=== PATIENT | male | born 1955 | race Caucasian/White ===

== ENCOUNTER 2018-03-23 16:19 | Emergency (ER) | payer BC ==
[2018-03-23 16:28] VITALS: BP 144/92
--- OUTSIDE RECORDS SUMMARY | 2018-03-23 16:41 | XMS REPORT ---
:1955 External Reference #:[id number] Author Organization [facility] Address [address] [facility] [place] [address] [place] [address] Phone [phone] Care Team Providers Name Role Phone Malinda Hudson MD Primary Care Physician Unavailable Payers Type Date Identification Numbers Payment Provider Subscriber Commercial Effective: Policy Number: [id number] [employer] Kylah Khan 2013 PayID: [id number] [address] [address] [place] [address] Workers Effective: Policy Number: [place] Compensation 2014 [id number] Insurance Co Onset: 2014 PayID: [id number] [address] [place] [address] Problems Date Description Provider Status Onset: 02/03/2015 Essential hypertension Matthew May DO [facility] Active Family History Date Family Member(s) Problem(s) Comments : (age 80 Father due to complications Years) injury : (age 70 Mother due to Natural HTN, DM Years) Causes Siblings 6 3 brothers, 3 sisters, no known significant medical problems with them. 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 In [place] Cigarette Use Never Smoked Cigarettes ETOH Use Drinks Alcoholic Beverages less than once a week Rarely Smoking Patient has never smoked Recreational Drug Use Denies Drug Use Daily Caffeine Consumes on average 1 cup of hot tea per day Exercise Type/Frequency Does not exercise none currently due to back injury Exercise Type/Frequency Used to jog daily General Hx Text [place] hoopa, [place] speaker. Imigrated to [facility]. Allergies, Adverse Reactions, Alerts Date Description Reaction Status Severity Comments 04/19/2015 Cyclobenzaprine may have caused V tach active 06/05/2013 NKDA inactive Medications Medication Date Status Form Strength Qnty SIG Indications Ordering Provider Telmisartan 11/28 Active Tablets 20mg 90tab Take One Malinda /2017 s Tablet By Cotton, Mouth M.D. Every Day In The Evening Hydrochlorothiazid 09/14 Active Tablets 25mg 90tab Take One Malinda e s Tablet By Cotton, Mouth M.D. Every Day In The Morning Acetaminophen 0000 Active Tablets 500mg 2 tablets Unknown /0000 every 6 hours as needed for pain Micardis 09/13 Hx Tablets 20mg 90tab take one Malinda /2017 s tablet Cotton, - every M.D. 11/28 Micardis 09/12 Hx Tablets 40mg 90tab 1 by mouth Malinda /2017 s every day Cotton, - M.D. 09/13 Hydrochlorothiazid 02/10 Hx Tablets 12.5mg 30tab take two Malinda e s tablets by Cotton, - mouth M.D. 09/14 Metoprolol 01/16 Hx Tablets 25mg 45tab 1 by mouth Malinda Succinate ER ER 24HR s every Cotton, - other day M.D. 11/28 Cyclobenzaprine 12/24 Hx Tablets 10mg 30tab 1 tablet 785.1 Malinda HCL s at Cotton, - bedtime; M.D. 01/15 can also take this in the day time every 8 hours. Micardis 08/08 Hx Tablets 20mg 90tab Take Two Malinda s Tablets By Cotton, - Mouth M.D. 09/12 Every Micardis 04/28 Hx Tablets 40mg 30tab 1 by mouth Malinda s every day Cotton, - M.D. 08/08 Micardis 01/27 Hx Tablets 20mg 30tab 1 by mouth Malinda /2013 s every day Cotton, - M.D. 04/28 Micardis 10/18 Hx Tablets 20mg 30tab 1 PO qd 401.1 s Tristan, - M.D. 10/23 Micardis 06/16 Hx Tablets 80mg not taking on regular Cotton, - basis M.D. 10/18 Bystolic 06/16 Hx Tablets 20mg not taking 401.1 on regular Cotton, - M.D. 10/18 No Active 06/05 Hx Unknown /2013 - 06/16 Fish Oil Hx Capsules 1000mg 1 by mouth Unknown /0000 occasional - ly (dosage 11/28 500mg 1000mg not sure) Medications Administered in Office Medication Date Status Form Strength Qnty SIG Indications Ordering Provider Inj, Administered Injection Matthew S. Regadenoson, 015 May, DO 0.1 MG FACC Technetium TC Administered Injection Matthew S. 99M 015 May, DO Tetrofosmin, FACC Per Unit Dose Up To 40 Millicuries Technetium TC Administered Injection Matthew S. 99M 015 May, DO Tetrofosmin, FACC Per Unit Dose Up To 40 Millicuries Vital Signs Date Vital Result Comment 03/21/2018 Height 67 inches 5'7" Weight 231.00 lb Heart Rate 60 /min BP Systolic 130 mmHg right arm 136/93 BP Diastolic 86 mmHg right arm 136/93 Body Temperature 97.6 F O2 % BldC Oximetry 97 % BMI (Body Mass Index) 36.2 kg/m2 11/28/2016 Weight 225.50 lb Heart Rate 82 /min BP Systolic 136 mmHg BP Diastolic 82 mmHg Body Temperature 97.2 F O2 % BldC Oximetry 99 % 10/27/2016 Height 67 inches 5'7" Weight 228.00 lb with shoes Heart Rate 60 /min BP Systolic 156 mmHg Home unit HR 59 BP Diastolic 91 mmHg Home unit HR 59 BP Systolic Sitting 140 mmHg Lue lrg cuff BP Diastolic Sitting 98 mmHg Lue lrg cuff BP Systolic Standing 136 mmHg Lue lrg cuff BP Diastolic Standing 96 mmHg Lue lrg cuff Respiratory Rate 17 /min BMI (Body Mass Index) 35.7 kg/m2 Ejection Fraction 55-60% 01/13/2016-echo 09/16/2016 Height 67 inches 5'7" Weight 225.00 lb no shoes Heart Rate 62 /min BP Systolic 141 mmHg Home monnitor @ 6:18am BP Diastolic 83 mmHg Home monnitor @ 6:18am BP Systolic Sitting 140 mmHg Lue lrg cuff BP Diastolic Sitting 94 mmHg Lue lrg cuff BP Systolic Standing 124 mmHg Lue lrg cuff BP Diastolic Standing 86 mmHg Lue lrg cuff Respiratory Rate 16 /min BMI (Body Mass Index) 35.2 kg/m2 Ejection Fraction 55-60% 01/13/2016-echo 08/29/2016 Weight 227.75 lb Heart Rate 64 /min BP Systolic 136 mmHg BP Diastolic 90 mmHg Body Temperature 97.5 F O2 % BldC Oximetry 97 % 02/08/2016 Weight 230.00 lb with shoes Heart Rate 60 /min BP Systolic 132 mmHg Lue lg cuff pt request BP Diastolic 96 mmHg Lue lg cuff pt request BP Systolic Sitting 138 mmHg Ra large cuff BP Diastolic Sitting 100 mmHg Ra large cuff BP Systolic Standing 144 mmHg Ra BP Diastolic Standing 100 mmHg Ra 02/05/2016 Heart Rate 64 /min BP Systolic 170 mmHg manula cuff R arm BP Diastolic 112 mmHg manula cuff R arm BP Systolic Sitting 168 mmHg home cuff R arm BP Diastolic Sitting 112 mmHg home cuff R arm Respiratory Rate 18 /min 02/01/2016 Weight 228.00 lb with shoes Heart Rate 68 /min BP Systolic Sitting 130 mmHg Ra lg cuff BP Diastolic Sitting 100 mmHg Ra lg cuff BP Systolic Standing 150 mmHg Ra lg cuff BP Diastolic Standing 110 mmHg Ra lg cuff Respiratory Rate 16 /min Ejection Fraction 55-60% date 01/13/16 ECHO 12/10/2015 Weight 229.00 lb Heart Rate 60 /min BP Systolic Sitting 128 mmHg BP Diastolic Sitting 84 mmHg Respiratory Rate 15 /min Body Temperature 97.9 F O2 % BldC Oximetry 98 % 09/07/2015 Weight 226.50 lb Heart Rate 62 /min BP Systolic 137 mmHg L arm BP Diastolic 90 mmHg L arm BP Systolic Sitting 124 mmHg R arm BP Diastolic Sitting 79 mmHg R arm Body Temperature 97.3 F O2 % BldC Oximetry 98 % 06/22/2015 Weight 225.00 lb Heart Rate 66 /min BP Systolic Sitting 126 mmHg BP Diastolic Sitting 82 mmHg Respiratory Rate 15 /min Body Temperature 98.3 F O2 % BldC Oximetry 98 % 04/20/2015 Weight 223.50 lb Heart Rate 69 /min BP Systolic Sitting 138 mmHg BP Diastolic Sitting 85 mmHg Body Temperature 96.6 F Pain Level 1 O2 % BldC Oximetry 97 % 03/19/2015 Weight 225.00 lb Heart Rate 64 /min BP Systolic Sitting 126 mmHg BP Diastolic Sitting 84 mmHg Respiratory Rate 14 /min Body Temperature 98.0 F O2 % BldC Oximetry 98 % 02/27/2015 Weight 218.75 lb Heart Rate 60 /min BP Systolic Sitting 152 mmHg right BP Diastolic Sitting 92 mmHg right BP Systolic Standing 147 mmHg left BP Diastolic Standing 100 mmHg left Body Temperature 97.9 F Pain Level 2 O2 % BldC Oximetry 99 % 02/10/2015 Height 67 inches 5'7" Weight 215.00 lb Heart Rate 53 /min BP Systolic 143 mmHg BP Diastolic 89 mmHg Body Temperature 97.2 F O2 % BldC Oximetry 98 % BMI (Body Mass Index) 33.7 kg/m2 02/03/2015 Height 67 inches 5'7" Weight 220.00 lb with shoes Heart Rate 70 /min BP Systolic Sitting 140 mmHg Ra lg cuff BP Diastolic Sitting 90 mmHg Ra lg cuff BP Systolic Standing 138 mmHg Ra lg cuff BP Diastolic Standing 90 mmHg Ra lg cuff Respiratory Rate 17 /min BMI (Body Mass Index) 34.5 kg/m2 Ejection Fraction 60-65% date 01/17/15 ECHO 01/23/2015 Weight 215.00 lb Heart Rate 78 /min BP Systolic Sitting 142 mmHg R arm 150/99 L arm BP Diastolic Sitting 91 mmHg R arm 150/99 L arm Body Temperature 96.8 F 01/16/2015 Height 67 inches 5'7" Weight 216.00 lb Heart Rate 80 /min BP Systolic 166 mmHg LA reg BP Diastolic 110 mmHg LA reg BP Systolic Sitting 162 mmHg Ra reg BP Diastolic Sitting 114 mmHg Ra reg BMI (Body Mass Index) 33.8 kg/m2 01/01/2015 Weight 218.25 lb Heart Rate 68 /min BP Systolic Sitting 146 mmHg BP Diastolic Sitting 80 mmHg Body Temperature 97.6 F O2 % BldC Oximetry 98 % 12/24/2014 Weight 217.00 lb Heart Rate 68 /min BP Systolic Sitting 160 mmHg R arm BP Diastolic Sitting 98 mmHg R arm BP Systolic Standing 148 mmHg L arm BP Diastolic Standing 94 mmHg L arm Body Temperature 96.9 F Pain Level 7 lower back,elbows O2 % BldC Oximetry 98 % 08/08/2014 Height 67 inches 5'7" Weight 224.00 lb Heart Rate 58 /min BP Systolic 127 mmHg left 125/77 BP Diastolic 86 mmHg left 125/77 Body Temperature 98.2 F BMI (Body Mass Index) 35.1 kg/m2 04/28/2014 Height 67 inches 5'7" Weight 223.75 lb Heart Rate 68 /min BP Systolic Sitting 138 mmHg BP Diastolic Sitting 94 mmHg Body Temperature 98.7 F O2 % BldC Oximetry 97 % BMI (Body Mass Index) 35.0 kg/m2 10/18/2013 Weight 222.00 lb Heart Rate 64 /min BP Systolic 140 mmHg left BP Diastolic 92 mmHg left BP Systolic Sitting 142 mmHg right BP Diastolic Sitting 90 mmHg right 06/05/2013 Height 67.75 inches 5'7.75" Weight 226.25 lb Heart Rate 72 /min BP Systolic Sitting 148 mmHg BP Diastolic Sitting 86 mmHg BMI (Body Mass Index) 34.7 kg/m2 Results Test Date Test Result H/L Range Note Laboratory test finding 11/28/2016 Lyme Disease Serology Negative Negative 1 Ua Routine 11/28/2016 Ua Specific [place] 1.005 Ua PH 7 Ua Color straw Ua Appera clear Ua WBC neg Ua Protein neg Ua Glucose norm Ua Ketones neg Ua Bilirubin neg Ua Urobilinogen norm Ua Nitrite neg Ua Occult Blood neg Basic Metabolic Panel 10/24/2016 Sodium 139 mmol/L 133-145 Potassium 3.9 mmol/L 3.5-5.0 Chloride 106 mmol/L 101-111 Co2 Carbon Dioxide 29 mmol/L 22-32 Anion Gap 4 mmol/L 2-11 Glucose 109 mg/dL High 70-100 Blood Urea Nitrogen 17 mg/dL 6-24 Creatinine 1.03 mg/dL 0.67-1.17 BUN/Creatinine Ratio 16.5 8-20 Calcium 8.8 mg/dL 8.6-10.3 Egfr Non- 73.7 >60 Egfr 94.7 >60 2 Laboratory test finding 08/30/2016 TSH (Thyroid Stim Horm) 1.16 mcIU/mL 0.34-5.60 3 Vitamin B12 319 pg/mL 180-914 4 Protein Electrophoresis 08/30/2016 Total Protein(Pep) 7.1 g/dL 6.3 - 7.9 Albumin 3.6 g/dL 3.4-4.7 Alpha-1 Globulin 0.2 g/dL 0.1-0.3 Alpha-2 Globulin 1.0 g/dL 0.6-1.0 Beta Globulin 0.9 g/dL 0.7-1.2 Gamma Globulin 1.5 g/dL 0.6-1.6 Albumin/Globulin Ratio 1.01 Impression See Comment 5 Lipid Profile (Trig/Chol/HDL) 08/30/2016 Triglycerides 76 mg/dL 6 Cholesterol 180 mg/dL 7 HDL Cholesterol 56.8 mg/dL 8 LDL Cholesterol 108 mg/dL 9 Comp Metabolic Panel 08/30/2016 Sodium 138 mmol/L 133-145 Potassium 4.1 mmol/L 3.5-5.0 Chloride 105 mmol/L 101-111 Co2 Carbon Dioxide 28 mmol/L 22-32 Anion Gap 5 mmol/L 2-11 Glucose 118 mg/dL High 70-100 Blood Urea Nitrogen 14 mg/dL 6-24 Creatinine 0.96 mg/dL 0.67-1.17 BUN/Creatinine Ratio 14.6 8-20 Calcium 9.0 mg/dL 8.6-10.3 Total Protein 6.7 g/dL 6.4-8.9 Albumin 4.0 g/dL 3.2-5.2 Globulin 2.7 g/dL 2-4 Albumin/Globulin Ratio 1.5 1-3 Total Bilirubin 1.10 mg/dL High 0.2-1.0 Alkaline Phosphatase 64 U/L 34-104 Alt 24 U/L 7-52 Ast 20 U/L 13-39 Egfr Non- 79.9 >60 Egfr 102.8 >60 10 Laboratory test 08/30/2016 Hemoglobin A1c (Glyco 6.1 % High Less than 6.0 11 finding HGB) Lipid Profile 02/01/2016 Triglycerides 117 mg/dL 12 (Trig/Chol/HDL) Cholesterol 157 mg/dL 13 HDL Cholesterol 56.8 mg/dL 14 LDL Cholesterol 77 mg/dL 15 Comp Metabolic Panel 02/01/2016 Sodium 138 mmol/L 133-145 Potassium 4.2 mmol/L 3.5-5.0 Chloride 105 mmol/L 101-111 Co2 Carbon Dioxide 28 mmol/L 22-32 Anion Gap 5 mmol/L 2-11 Glucose 102 mg/dL High 70-100 Blood Urea Nitrogen 13 mg/dL 6-24 Creatinine 0.94 mg/dL 0.67-1.17 BUN/Creatinine Ratio 13.8 8-20 Calcium 8.7 mg/dL 8.6-10.3 Total Protein 6.5 g/dL 6.4-8.9 Albumin 3.9 g/dL 3.2-5.2 Globulin 2.6 g/dL 2-4 Albumin/Globulin Ratio 1.5 1-3 Total Bilirubin 0.80 mg/dL 0.2-1.0 Alkaline Phosphatase 66 U/L 34-104 Alt 19 U/L 7-52 Ast 18 U/L 13-39 Egfr Non- 81.9 >60 Egfr 105.3 >60 16 Laboratory test 02/01/2016 Hemoglobin A1c (Glyco 6.0 % Less than 6.0 17 finding HGB) Laboratory test 01/15/2015 Magnesium 2.0 mg/dL 1.9-2.7 finding Comp Metabolic Panel 01/15/2015 Sodium 138 mmol/L 133-145 Potassium 4.4 mmol/L 3.5-5.0 Chloride 105 mmol/L 101-111 Co2 Carbon Dioxide 27 mmol/L 22-32 Anion Gap 6 mmol/L 2-11 Glucose 96 mg/dL 70-100 Blood Urea Nitrogen 13 mg/dL 6-24 Creatinine 0.96 mg/dL 0.67-1.17 BUN/Creatinine Ratio 13.5 8-20 Calcium 8.8 mg/dL 8.6-10.3 Total Protein 6.7 g/dL 6.4-8.9 Albumin 4.2 g/dL 3.2-5.2 Globulin 2.5 g/dL 2-4 Albumin/Globulin Ratio 1.7 1-3 Total Bilirubin 1.50 mg/dL High 0.2-1.0 Alkaline Phosphatase 63 U/L 34-104 Alt 19 U/L 7-52 Ast 28 U/L 13-39 Egfr Non- 80.5 >60 Egfr 103.5 >60 18 Comp Metabolic Panel 05/09/2014 Sodium 138 mmol/L 133-145 19 Potassium 4.0 mmol/L 3.5-5.0 19 Chloride 105 mmol/L 101-111 19 Co2 Carbon Dioxide 28 mmol/L 22-32 19 Anion Gap 5 mmol/L 2-11 19 Glucose 112 mg/dL High 70-100 19 Blood Urea Nitrogen 12 mg/dL 6-24 19 Creatinine 1.00 mg/dL 0.67-1.17 19 BUN/Creatinine Ratio 12.0 8-20 19 Calcium 8.8 mg/dL 8.6-10.3 19 Total Protein 6.9 g/dL 6.4-8.9 19 Albumin 4.1 g/dL 3.2-5.2 19 Globulin 2.8 g/dL 2-4 19 Albumin/Globulin Ratio 1.5 1-3 19 Total Bilirubin 0.70 mg/dL 0.2-1.0 19 Alkaline Phosphatase 86 U/L 34-104 19 Alt 43 U/L 7-52 19 Ast 28 U/L 13-39 19 Egfr Non- 76.7 >60 19 Egfr 98.7 >60 19, 20 Laboratory test finding 05/09/2014 Hemoglobin A1c 6.3 % High Less than 6.0 19, 21 Lipid Profile 05/09/2014 Triglycerides 109 mg/dL 19, 22 (Trig/Chol/HDL) Cholesterol 190 mg/dL 19, 23 HDL Cholesterol 57.3 mg/dL 19, 24 LDL Cholesterol 111 mg/dL 19, 25 Laboratory test finding 06/07/2013 Hemoglobin A1c 6.1 % High Less than 6.0 26 Lipid Profile 06/07/2013 Triglycerides 47 mg/dL 40-200 (Trig/Chol/HDL) Cholesterol 166 mg/dL Less than 200 HDL Cholesterol 67 mg/dL High 40-60 27 Cholesterol/HDL Ratio 2.5 Average 1-4.44 LDL Cholesterol 89.6 Less Than 100 28 Comp Metabolic Panel 06/07/2013 Sodium 134 mmol/L 133-145 Potassium 4.2 mmol/L 3.5-5.0 Chloride 102 mmol/L 101-111 Co2 Carbon Dioxide 27.0 mmol/L 22-32 Anion Gap 5.0 mmol/L 2-11 Glucose 98 mg/dL 70-100 Blood Urea Nitrogen 13 mg/dL 6-24 Creatinine 1.00 mg/dL 0.50-1.40 BUN/Creatinine Ratio 13.0 8-20 Calcium 8.9 mg/dL 8.1-9.9 Total Protein 6.1 g/dL Low 6.2-8.1 Albumin 3.8 g/dL 3.6-5.4 Globulin 2.3 g/dL 2-4 Albumin/Globulin Ratio 1.7 1-3 Total Bilirubin 1.0 mg/dL 0.4-1.5 Alkaline Phosphatase 80 U/L 30-110 Alt 32 U/L 14-54 Ast 24 U/L 12-42 Egfr Non- 77.0 >60 Egfr 99.1 >60 29 1 Serologic response to B. burgdorferi infection is not detected, but cannot rule out early infection during which low or undetectable antibody levels to B. burgdorferi may be present. If clinically indicated, a new serum specimen should be submitted in 7-14 days. Test Performed by: [address] [address] 2 Because ethnic data is not always readily available, this report includes an eGFR for both -Americans and non- Americans. The National Kidney Disease Education Program (NKDEP) does not endorse the use of the MDRD equation for patients that are not between the ages of 18 and 70, are , have extremes of body size, muscle mass, or nutritional status, or are non- or non-. According to the National Kidney Foundation, irrespective of diagnosis, the stage of the disease is based on the level of kidney function: Stage Description GFR(mL/min/1.73 m(2)) 1 Kidney damage with normal or decreased GFR 90 2 Kidney damage with mild decrease in GFR 60-89 3 Moderate decrease in GFR 30-59 4 Severe decrease in GFR 15-29 5 Kidney failure <15 (or dialysis) 3 FASTING 10 HOUR 4 Normal Range 180 to 914 Indeterminate Range 145 to 180 Deficient Range <145 5 RESULT: No apparent monoclonal protein on serum electrophoresis. Test Performed by: [address] [id number] 6 Desirable <150 Borderline high 150-199 High 200-499 Very High >500 7 Desirable <200 Borderline high 200-239 High >239 8 Low <40 Desirable: 40-60 High: >60 9 Desirable: <100 mg/dL Near Optimal: 100-129 mg/dL Borderline High: 130-159 mg/dL High: 160-189 mg/dL Very High: >189 mg/dL 10 Because ethnic data is not always readily available, this report includes an eGFR for both -Americans and non- Americans. The National Kidney Disease Education Program (NKDEP) does not endorse the use of the MDRD equation for patients that are not between the ages of 18 and 70, are , have extremes of body size, muscle mass, or nutritional status, or are non- or non-. According to the National Kidney Foundation, irrespective of diagnosis, the stage of the disease is based on the level of kidney function: Stage Description GFR(mL/min/1.73 m(2)) 1 Kidney damage with normal or decreased GFR 90 2 Kidney damage with mild decrease in GFR 60-89 3 Moderate decrease in GFR 30-59 4 Severe decrease in GFR 15-29 5 Kidney failure <15 (or dialysis) 11 Therapeutic target for the treatment of diabetes Mellitus patients is <7% HBA1C, and in selective patients <6.0%.Please refer to [place] [employer] Diabetic care guidelines for further information. 12 Desirable <150 Borderline high 150-199 High 200-499 Very High >500 13 Desirable <200 Borderline high 200-239 High >239 14 Low <40 Desirable: 40-60 High: >60 15 Desirable: <100 mg/dL Near Optimal: 100-129 mg/dL Borderline High: 130-159 mg/dL High: 160-189 mg/dL Very High: >189 mg/dL 16 Because ethnic data is not always readily available, this report includes an eGFR for both -Americans and non- Americans. The National Kidney Disease Education Program (NKDEP) does not endorse the use of the MDRD equation for patients that are not between the ages of 18 and 70, are , have extremes of body size, muscle mass, or nutritional status, or are non- or non-. According to the National Kidney Foundation, irrespective of diagnosis, the stage of the disease is based on the level of kidney function: Stage Description GFR(mL/min/1.73 m(2)) 1 Kidney damage with normal or decreased GFR 90 2 Kidney damage with mild decrease in GFR 60-89 3 Moderate decrease in GFR 30-59 4 Severe decrease in GFR 15-29 5 Kidney failure <15 (or dialysis) 17 Therapeutic target for the treatment of diabetes Mellitus patients is <7% HBA1C, and in selective patients <6.0%.Please refer to [place] [employer] Diabetic care guidelines for further information. 18 Because ethnic data is not always readily available, this report includes an eGFR for both -Americans and non- Americans. The National Kidney Disease Education Program (NKDEP) does not endorse the use of the MDRD equation for patients that are not between the ages of 18 and 70, are , have extremes of body size, muscle mass, or nutritional status, or are non- or non-. According to the National Kidney Foundation, irrespective of diagnosis, the stage of the disease is based on the level of kidney function: Stage Description GFR(mL/min/1.73 m(2)) 1 Kidney damage with normal or decreased GFR 90 2 Kidney damage with mild decrease in GFR 60-89 3 Moderate decrease in GFR 30-59 4 Severe decrease in GFR 15-29 5 Kidney failure <15 (or dialysis) 19 PATIENT IS FASTING 20 Because ethnic data is not always readily available, this report includes an eGFR for both -Americans and non- Americans. The National Kidney Disease Education Program (NKDEP) does not endorse the use of the MDRD equation for patients that are not between the ages of 18 and 70, are , have extremes of body size, muscle mass, or nutritional status, or are non- or non-. According to the National Kidney Foundation, irrespective of diagnosis, the stage of the disease is based on the level of kidney function: Stage Description GFR(mL/min/1.73 m(2)) 1 Kidney damage with normal or decreased GFR 90 2 Kidney damage with mild decrease in GFR 60-89 3 Moderate decrease in GFR 30-59 4 Severe decrease in GFR 15-29 5 Kidney failure <15 (or dialysis) 21 Therapeutic target for the treatment of diabetes Mellitus patients is <7% HBA1C, and in selective patients <6.0%.Please refer to [place] [employer] Diabetic care guidelines for further information. 22 Desirable <150 Borderline high 150-199 High 200-499 Very High >500 23 Desirable <200 Borderline high 200-239 High >239 24 Low <40 Desirable: 40-60 High: >60 25 Desirable <100 Near Optimal 100-129 Borderline high 130-159 High 160-189 Very High >189 26 Therapeutic target for the treatment of diabetes Mellitus patients is <7% HBA1C, and in selective patients <6.0%.Please refer to [place] [employer] Diabetic care guidelines for further information. 27 HDL Interpretation: Undesirable: High Risk: Less than 40 mg/dL Desirable: Low Risk: Greater than 60 mg/dL 28 LDL Interpretation: Low Risk Optimal Level: LDL Less than 100 mg/dL Near or Above Optimal: LDL 100-129 mg/dL Borderline High Risk: LDL 130-159 mg/dL High Risk: LDL 160-189 mg/dL Very High Risk: LDL Greater than 189 mg/dL 29 Because ethnic data is not always readily available, this report includes an eGFR for both -Americans and non- Americans. The National Kidney Disease Education Program (NKDEP) does not endorse the use of the MDRD equation for patients that are not between the ages of 18 and 70, are , have extremes of body size, muscle mass, or nutritional status, or are non- or non-. According to the National Kidney Foundation, irrespective of diagnosis, the stage of the disease is based on the level of kidney function: Stage Description GFR(mL/min/1.73 m(2)) 1 Kidney damage with normal or decreased GFR 90 2 Kidney damage with mild decrease in GFR 60-89 3 Moderate decrease in GFR 30-59 4 Severe decrease in GFR 15-29 5 Kidney failure <15 (or dialysis) Procedures Date CPT Code Description Status 02/01/2016 54560 EKG Tracing & Interpretation Completed 01/13/2016 79651 ECHO Transthoracic, Real-Time 2D With Doppler And Color Completed Flow 02/05/2015 49285 Holter Monitoring 24 HR New Completed 01/26/2015 19386 ECHO Transthoracic, Real-Time 2D With Doppler And Color Completed Flow 01/26/2015 70003 ECHO Transthoracic, Real-Time 2D With Doppler And Color Completed Flow 01/21/2015 06346 Stress Test Completed 01/21/2015 80214 Stress Test Completed 01/21/2015 73235 Myocardial Perfusion Imaging Tomographic (Spect) Completed Multiple Studies 01/21/2015 48661 Myocardial Perfusion Imaging Tomographic (Spect) Completed Multiple Studies 01/16/2015 85076 EKG Tracing & Interpretation Completed 01/16/2015 51358 EKG Tracing & Interpretation Completed 01/14/2015 83873 Holter Monitor Review (24 hr)dr review & interp only Completed 01/01/2015 94143 EKG Tracing & Interpretation Completed Encounters Type Date Location Provider CPT E/M Dx Office Visit 11/28/2016 [facility] Malinda Hudson, 35255 M54.5 1:00p - Franny Hopper R21 I10 Z12.11 Office Visit 10/27/2016 8:20a [facility] [place] [address] I10 FACC R73.03 Office Visit 09/16/2016 8:20a [facility] [place] [address] I10 [facility] FACC Office Visit 08/29/2016 4:20p [facility] Internal [facility] - Malinda Cotton, [address]70 I10 [place] M.[place]. R20.2 G47.00 R73.03 Office Visit 02/08/2016 3:00p [facility] [place] [address] I10 Office Visit 02/05/2016 1:30p [facility] [place] [address] I10 Office Visit 02/01/2016 3:40p [facility] Matthew May, 20832 I47.2 DO FAC I10 R73.01 E66.8 Office Visit 12/10/2015 1:00p [facility] Internal Malinda Cotton, 59168 M54.5 Medicine - [place] M.D. Office Visit 09/07/2015 10:00a [facility] Internal Malinda Cotton, 26779 S33.5xxD Medicine - [place] M.D. Office Visit 06/22/2015 4:20p [facility] Internal Malinda Cotton, 12341 S33.5xxD Medicine - [place] M.D. Office Visit 04/20/2015 4:20p [facility] Internal Malinda Cotton, 33062 S33.5xxD Medicine - [place] M.[place]. Office Visit 03/19/2015 4:20p [facility] Internal Malinda Cotton, 49361 S33.5xxD [facility] - [place] M[place] Office Visit 02/27/2015 1:00p [facility] Malinda Cotton, 95252 S33.5xxD [facility] - [place] M[facility] Office Visit 02/10/2015 9:40a [facility] Malinda Cotton, 26767 S33.5xxD [facility] - [place] M[place] Office Visit 01/23/2015 4:20p [facility] Malinda Cotton, 06408 847.2 [facility] - [place] M[place] Office Visit 01/16/2015 1:00p [facility] [place] [place] [address] 785.1 FACC 790.21 427.1 427.1 790.21 401.1 785.1 401.1 401.1 785.1 427.1 Office Visit 01/01/2015 4:00p [facility] Malinda Hudson, 34846 785.1 - Franny Hopper 847.2 719.42 Office Visit 12/24/2014 11:40a [facility] Malinda Hudson, 90598 847.2 - Franny Hopper 847.0 Office Visit 08/08/2014 1:00p [facility] [place] [address] 401.1 [place] 782.9 Office Visit 04/28/2014 2:40p [facility] Malinda Hudson 64443 401.1 - Franny Hopper 790.21 465.9 Office Visit 10/18/2013 9:20a [facility] Malinda Hudson 64595 401.1 - Franny Hopper Office Visit 06/05/2013 1:40p [facility] Malinda Hudson, 79901 790.21 - Franny Hopper 401.1 782.1 Plan of Care Future Appointment(s):05/22/2018 3:00 pm - Malinda Hudson M.D. at [facility] - [place]72/14/2018 - Keisha Mo N.P.R13.10 Dysphagia, unspecifiedComments:I have referred you to a specialist Dr Cifuentes for further evaluation.Referral:Ant Cifuentes MD, Otolaryngology
--- NOTE | 2018-03-23 17:16 | ED ---
Throat Pain/Nasal Congestion - HPI Summary HPI Summary: 63-year-old male presents with throat irritation for the past month. He denies any foreign body. He states he is able to eat and drink okay. He states when he has cold foods it hurts the most. Denies any chest pain or shortness breath. He states that the pain has been the same past month. Pain is worse at night. He admits to some heartburn. No epigastric pain. No nausea or vomiting. He states he followed up with primary that told him to follow-up with ENT but is not able to get appointment today so he came to the ED. Is in no acute distress. - History of Current Complaint Chief Complaint: EDThroatPain Time Seen by Provider: 03/23/18 16:47 - Allergies/Home Medications Allergies/Adverse Reactions: Allergies Allergy/AdvReac Type Severity Reaction Status Date / Time No Known Allergies Allergy Verified 03/23/18 16:26 PMH/Surg Hx/FS Hx/Imm Hx Endocrine/Hematology History: Denies: Hx Thyroid Disease Cardiovascular History: Reports: Hx Hypertension Infectious Disease History: No Infectious Disease History: Denies: Traveled Outside the [place] in Last 30 Days - Family History Known Family History: Positive: Hypertension - Social History Alcohol Use: Occasionally Substance Use Type: Reports: None Smoking Status (MU): Never Smoked Tobacco Review of Systems Negative: Fever Positive: Sore Throat Negative: Chest Pain Negative: Shortness Of Breath Negative: Abdominal Pain All Other Systems Reviewed And Are Negative: Yes Physical Exam Triage Information Reviewed: Yes Vital Signs On Initial Exam: Initial Vitals Temp Pulse Resp BP Pulse Ox 97.3 F 105 19 144/92 96 03/23/18 16:21 03/23/18 16:21 03/23/18 16:21 03/23/18 16:21 03/23/18 16:21 Vital Signs Reviewed: Yes Appearance: Positive: Well-Appearing Skin: Positive: Warm, Dry Head/Face: Positive: Normal Head/Face Inspection Eyes: Positive: Normal, EOMI, NATASHA, Conjunctiva Clear ENT: Positive: Normal ENT inspection, Pharynx normal, TMs normal Neck: Positive: Supple, Nontender, No Lymphadenopathy, Other: - no thyroid nodules felt Respiratory/Lung Sounds: Positive: Clear to Auscultation, Breath Sounds Present Cardiovascular: Positive: Normal, RRR Abdomen Description: Positive: Nontender, Soft Bowel Sounds: Positive: Present Musculoskeletal: Positive: Normal Neurological: Positive: Normal Psychiatric: Positive: Normal Diagnostics - Vital Signs Vital Signs Temp Pulse Resp BP Pulse Ox 03/23/18 16:21 97.3 F 105 19 144/92 96 - Laboratory Lab Statement: Any lab studies that have been ordered have been reviewed, and results considered in the medical decision making process. EENT Course/Dx - Course Course Of Treatment: 63-year-old male presents with throat irritation for the past month. He denies any foreign body. He states he is able to eat and drink okay. He states when he has cold foods it hurts the most. Denies any chest pain or shortness breath. He states that the pain has been the same past month. Pain is worse at night. He admits to some heartburn. No epigastric pain. No nausea or vomiting. He states he followed up with primary that told him to follow-up with ENT but is not able to get appointment today so he came to the ED. Is in no acute distress. On exam lungs clear to auscultation. Able to manage airway well. Discussed could get a CT to look for soft tissue mass but the patient has a follow-up with ENT on Monday. Discussed that cannot scope in ED has not an emergency with current presentation. We'll try a short course omeprazole. as GERD may be causing the pain. Give Magic mouthwash for pain. Patient understands agrees with plan. - Differential Diagnoses Differential Diagnoses: Foreign Body, Other - mass, GERD - Diagnoses Provider Diagnoses: Throat irritation Discharge - Sign-Out/Discharge Documenting (check all that apply): Patient Departure - Discharge Plan Condition: Good Disposition: HOME Prescriptions: Magic Mouth Was-ROBERT/MAAL/LIDO* 5 ml SWISH SPIT QID #100 ml Omeprazole CAP* [Prilosec CAP* 20 MG] 20 mg PO DAILY #14 cap.dr Referrals: Malinda Hudson MD [Primary Care Provider] - Additional Instructions: Follow up with ENT Take omeprazole daily Take magic mouth wash 5ml four times a day as needed for pain return to ED if unable to swallow, develop chest pain, shortness of breath or any new or worsening symptoms - Billing Disposition and Condition Condition: GOOD Disposition: Home
== END 2018-03-23 17:37 | disposition home or self-care (01) ==
LOC: ED 16:19
DX: R07.0 Pain in throat (principal)
CPT/HCPCS: 99281